=== PATIENT | male | born 1995 | race Caucasian/White ===

== ENCOUNTER 2019-12-31 19:16 | Emergency (ER) | payer OTHER, SELFPAY ==
--- NOTE | ~2019-12-31 | XR_ITS ---
EXAMINATION: XR knee LT 2V DATE: 12/31/2019 19:39 INDICATION: Left knee pain and laceration TECHNIQUE: Two views of the left knee were obtained. COMPARISON: None. FINDINGS: Alignment is normal. No fracture or osteochondral lesion. Joint spaces are normal with no e rosions. No joint effusion/synovitis. There is soft tissue swelling cranial to the patella. No radi opaque foreign body is identified. IMPRESSION: 1. Soft tissue swelling cranial to the patella. No acute osseous abnormality. Reviewed, dictated and finalized at location A.
--- NOTE | 2019-12-31 19:21 | ED.GENADULT ---
HPI - General Adult General Chief complaint: Wound/Laceration Stated complaint: left knee cut Time Seen by Provider: 12/31/19 19:41 Source: patient Mode of arrival: ambulatory Limitations: no limitations History of Present Illness HPI narrative: 24-year-old male patient presents the [facility] with complaints of a cut to the left knee. Patient states that he was taking out some garbage today and states there was some broken glass in the garbage and cut his left knee right above the knee. Patient does not know when his last tetanus shot was. Patient denies any numbness or tingling. Related Data Home Medications Medication Instructions Recorded Confirmed No Home Medications 12/31/19 12/31/19 Allergies Allergy/AdvReac Type Severity Reaction Status Date / Time No Known Allergies Allergy Verified 12/31/19 19:42 Review of Systems Review of Systems: Narrative: CONSTITUTIONAL: Denies fever, chills, or sweats. EYES: Denies visual changes, redness, or discharge. ENT: Denies rhinorrhea, congestion, sore throat, or otalgia. CARDIOVASCULAR: Denies chest pain, palpitations, or edema. RESPIRATORY: Denies cough or dyspnea. GASTROINTESTINAL: Denies abdominal pain, nausea, vomiting, or diarrhea. GENITOURINARY: Denies dysuria or hematuria. SKIN: Denies rash or itching. Positive laceration left knee MUSCULOSKELETAL: Denies back pain, joint pain, or myalgia. NEUROLOGIC: Denies headache, numbness, or weakness. PSYCHIATRIC: Denies anxiety or depression. PMFSH Social History Social History Gender identity (if verbalized by the patient): Male Comments At the time of my signature I agree with nursing past medical history, surgical, social, and family history. There is no relevant family history pertinent to the presenting complaint. Exam Narrative: Exam Narrative: GENERAL: Well-appearing, well-nourished, and in no acute distress. HEAD: Normocephalic, atraumatic. EYES: PERRLA and EOMI. ENT: Nares clear, no rhinorrhea or epistaxis. Mucous membranes moist. NECK: Supple. No lymphadenopathy CHEST: Clear to auscultation. No respiratory distress. HEART: Regular rate and rhythm. No murmur heard. Normal peripheral pulses. ABDOMEN: Soft, nontender, nondistended, normal active bowel sounds. EXTREMITIES: Normal range of motion. No edema. SKIN: Warm, dry, no rash. Patient has approximately 3 cm laceration above the left knee. No obvious deep injury, no obvious foreign body. Bleeding is controlled. Patient has excellent range of motion to the knee and leg. NEURO: No focal deficits. Alert and oriented x3. Course Vital Signs Vital signs: Vital Signs Temperature 37.1 C 12/31/19 19:30 Pulse Rate 46 L 12/31/19 19:30 Respiratory Rate 16 12/31/19 19:30 Blood Pressure 124/77 12/31/19 19:30 Pulse Oximetry 100 12/31/19 19:30 Temperature 37.1 C 12/31/19 19:30 Pulse Rate 46 L 12/31/19 19:30 Respiratory Rate 16 12/31/19 19:30 Blood Pressure 124/77 12/31/19 19:30 Pulse Oximetry 100 12/31/19 19:30 Vital signs reviewed. Procedures Laceration Laceration 1: Date: 12/31/19 Time: 19:50 Site: lower extremity (Left knee) Side (If applicable): left Size (cm): 3 Description: linear Depth: simple, single layer Local Anesthetic: lidocaine 1% Amount of anesthesia used (mL): 4 ====== Skin Level ====== Skin layer closed with: vicryl Size (cm): 4-0 Number of sutures: 5 Technique: simple, interrupted ====== Subcutaneous Layer ====== ====== Muscle Layer ====== ====== Tendon Layer ====== Dressing: The Procedure was explained and verbal consent was obtained. The wound was anesthetized with 4 ml of 1% lidocaine with good anesthesia with local infiltration. Sterile drape and prep were done. Copious irrigation was done with saline and Shur-Clens and the wound wa
[2019-12-31 19:30] VITALS: BP 124/77; PULSE 46; RESP 16; TEMP 37.1; O2SAT 100
== END 2019-12-31 20:16 | disposition home or self-care (01) ==
PROVIDERS: Emergency Provider Nurse Practitioner Family; PCP Pediatrics
DX: S81.012A Laceration without foreign body, left knee, initial encounter (principal); W25.XXXA Contact with sharp glass, initial encounter
CPT/HCPCS: 12002; 73560; 99203; G0463